=== PATIENT | female | born 1990 | race Two or more races ===

== ENCOUNTER 2023-03-28 23:32 | Observation (INO) | payer MEDICAID ==
[~2023-03-28] VITALS: Ht 165.1 cm; Wt 63.5 kg
[~2023-03-28 23:32] MED LIST: PREN-96 PO
[2023-03-29] MEDS ORDERED: LACTATED RINGER'S 1,000 ML IV ONE (00:15)
[2023-03-29] MEDS ORDERED: TERBUTALINE SULFATE 1 MG/ML 1ML VIAL SC ONE (00:15)
[2023-03-29] MEDS ORDERED: LACTATED RINGER'S 1,000 ML IV SCH (00:15)
[2023-03-29] MEDS: TERBUTALINE SULFATE 1 MG/ML 1ML VIAL SC SCH ×3 (00:23→01:10)
[2023-03-29] MEDS ORDERED: NIFEdipine 10 MG CAP PO ONE (01:15)
[2023-03-29] MEDS ORDERED: NIF10C PO (01:26)
[2023-03-29] MEDS ORDERED: MAGNESIUM SULFATE 40MG/ML 1,000 ML IV SCH (02:30)
[2023-03-29] MEDS ORDERED: MAGNESIUM SULFATE 100 ML IV ONE (02:30)
[2023-03-29] MEDS ORDERED: BETAMETHASONE ACET (30mg/5ml) 5ml Vial 6mg/ml IM ONE (02:45)
[2023-03-29 03:02] LABS: Basophils # (auto) 0.1 10 ^3/uL (0-0.2); Basophils % (auto) 0.4 % (0.0-2.0); Eosinophils # (auto) 0 10 ^3/uL (0-0.8); Eosinophils % (auto) 0.1 % (0.0-7.0); Hemoglobin 13.5 g/dL (12.2-16.2); Lymphocytes # (auto) 1.8 10 ^3/uL (0.4-5.4); Lymphocytes % (auto) 11.8 % (10.0-50.0); Mean Corpuscular Hemoglobin 30.7 pg (28.0-32.0); Mean Corpuscular Hgb Conc. 33.7 g/dL (32.0-36.0); Mean Corpuscular Volume 91.1 fL (80.0-100.0); Monocytes # (auto) 0.6 10 ^3/uL (0-1.3); Monocytes % (auto) 4.1 % (0.0-12.0); Neutrophils # (auto) 12.6 10 ^3/uL (1.6-8.6); Neutrophils % (auto) 83.6 % (37.0-80.0); Red Blood Cells 4.39 10^6/uL (4.0-5.20); Red Cell Distribution Width 12.9 % (11.8-14.3)
[2023-03-29 03:07] LABS: Urine WBC None Seen /hpf (0 - 5)
[2023-03-29 03:21] LABS: Urine Bacteria FEW /hpf (None Seen); Urine Blood TRACE /uL (Negative); Urine Clarity Clear (Clear); Urine Color Colorless (Yellow); Urine Protein, UAD Negative (Negative); Urine Specific Gravity 1.003 (1.001-1.035); Urine Urobilinogen Normal (Negative)
[2023-03-29 03:29] LABS: INR 0.94 (0.9-1.15); Partial Thromboplastin Time 27.1 SEC (24.5-34.5); Prothrombin Time 9.9 sec (9.3-11.8)
[2023-03-29 03:34] LABS: Alcohol, Urine < 3.0 mg/dL (0-10); Amphetamine Screen, Urine NEGATIVE (NEGATIVE); Barbiturate Scree,Urine NEGATIVE (NEGATIVE); Benzodiazephine Screen, Urine NEGATIVE (NEGATIVE); Cannabinoid Screen, Urine NEGATIVE (NEGATIVE); Cocaine Screen, Urine NEGATIVE (NEGATIVE); Opiate Scree,Urine NEGATIVE (NEGATIVE); Phencyclidine Screen, Urine NEGATIVE (NEGATIVE)
[2023-03-29 03:35] LABS: Potassium 3.5 mmol/L (3.5-5.1)
[2023-03-29 03:44] LABS: Albumin 2.5 g/dL (3.4-5.0); BUN/Creatinine Ratio 10.4 (10.0-20.0); Bilirubin, Total 0.3 mg/dL (0.2-1.0); Calcium 8.1 mg/dL (8.5-10.1); Total Protein 6.8 g/dL (6.4-8.2)
[2023-03-31 07:07] LABS: RPR Non Reactive (Non Reactive)
[2023-04-01 19:06] LABS: Treponema pallidum Ab (FTA-Ab) Non Reactive (Non Reactive)
== END 2023-03-29 09:02 ==
LOC: LDRP 23:32
PROVIDERS: ADMIT Obstetrics & Gynecology; ATTEND Obstetrics & Gynecology
DX: O60.03 Preterm labor without delivery, third trimester (principal); O36.8130 Decreased fetal movements, third trimester, not applicable or unspecified; O62.9 Abnormality of forces of labor, unspecified; Z3A.35 35 weeks gestation of pregnancy; Z88.0 Allergy status to penicillin; Z98.891 History of uterine scar from previous surgery; Z79.899 Other long term (current) drug therapy
CPT/HCPCS: 36415; 59025; 76818; 80053; 80307; 81001; 81002; 85025; 85610; 85730; 86592; 86850; 86900; 86901; 94760; 96361; 96365; 96366; 96372; G0378; J0702; J3105; J3475; 96360

== ENCOUNTER 2023-04-17 08:44 | Inpatient (IN) | payer MEDICAID ==
[~2023-04-17] VITALS: Ht 162.6 cm; Wt 73.9 kg
[~2023-04-17 08:44] MED LIST changes: +NIF10C PO
[2023-04-17 12:08] LABS: Basophils # (auto) 0 10 ^3/uL (0-0.2); Basophils % (auto) 0.5 % (0.0-2.0); Eosinophils # (auto) 0.1 10 ^3/uL (0-0.8); Eosinophils % (auto) 0.8 % (0.0-7.0); Hematocrit 37.5 % (36.0-46.0); Hemoglobin 12.8 g/dL (12.2-16.2); Lymphocytes # (auto) 1.5 10 ^3/uL (0.4-5.4); Lymphocytes % (auto) 20.1 % (10.0-50.0); Mean Corpuscular Hemoglobin 30.8 pg (28.0-32.0); Mean Corpuscular Volume 90.6 fL (80.0-100.0); Monocytes # (auto) 0.6 10 ^3/uL (0-1.3); Monocytes % (auto) 7.6 % (0.0-12.0); Neutrophils # (auto) 5.3 10 ^3/uL (1.6-8.6); Red Blood Cells 4.14 10^6/uL (4.0-5.20); Red Cell Distribution Width 13.1 % (11.8-14.3); White Blood Cell 7.5 10^3/uL (4.4-10.8)
[2023-04-17 12:21] LABS: INR 0.93 (0.9-1.15); Partial Thromboplastin Time 26.5 SEC (24.5-34.5); Prothrombin Time 9.8 sec (9.3-11.8)
[2023-04-17 13:33] LABS: Amphetamine Screen, Urine Neg (NEGATIVE)
[2023-04-17 13:35] LABS: Barbiturate Scree,Urine Neg (NEGATIVE)
[2023-04-17 13:36] LABS: Alanine Aminotransferase 11 U/L (7-40); Alkaline Phosphatase 122 U/L (46-116); Anion Gap 6.9 (5-15); Calcium 8.4 mg/dL (8.5-10.1); Carbon Dioxide 23.1 mmol/L (20-30); Chloride 104 mmol/L (98-107); Glucose 74 mg/dL (74-106); Potassium 3.9 mmol/L (3.5-5.1); Sodium 134 mmol/L (136-145)
[2023-04-17 13:36] LABS: Benzodiazephine Screen, Urine Neg (NEGATIVE); Cocaine Screen, Urine Neg (NEGATIVE); Opiate Scree,Urine Neg (NEGATIVE)
[2023-04-17 13:37] LABS: Cannabinoid Screen, Urine Neg (NEGATIVE); Phencyclidine Screen, Urine Neg (NEGATIVE)
[2023-04-17 13:37] LABS: Albumin 3.5 g/dL (3.2-4.8); Aspartate Aminotransferase 17 U/L (13-40)
[2023-04-17 13:38] LABS: Bilirubin, Total 0.7 mg/dL (0.2-1.0); Total Protein 6.2 g/dL (5.7-8.2)
[2023-04-17 13:42] LABS: BUN/Creatinine Ratio 9.8 (10.0-20.0); Blood Urea Nitrogen < 5 mg/dL (9-23)
[2023-04-18] VITALS (22 sets, daily range): BP systolic 109–133; BP diastolic 69–87; PULSE 61–87; RESP 17–18; TEMP 98.1–98.7; O2SAT 97–100
[2023-04-18] MEDS ORDERED: METOCLOPRAMIDE HCL 5MG/ml INJ 2ml VIAL IV ONE (05:30)
[2023-04-18] MEDS ORDERED: SODIUM CITR/CITRIC ACID ORAL SOLN 30 ML PO ONE (05:30)
[2023-04-18] MEDS ORDERED: LACTATED RINGER'S 1,000 ML IV SCH (05:30)
[2023-04-18] MEDS ORDERED: LACTATED RINGER'S 1,000 ML IV ONE (05:30)
[2023-04-18] MEDS ORDERED: CLINDAMYCIN 900MG IV 50 ML IV ONE (05:45)
[2023-04-18 06:34] LABS: Urine Bacteria NONE SEEN /hpf (None Seen); Urine Blood Negative /uL (Negative); Urine Clarity Clear (Clear); Urine Color Yellow (Yellow); Urine Protein, UAD Negative (Negative); Urine Specific Gravity 1.014 (1.001-1.035); Urine Urobilinogen Normal (Negative); Urine WBC 1 /hpf (0 - 5); Urine pH 6.5 (5.0-8.0)
[2023-04-18] MEDS ORDERED: oxyTOCIN 10 UNIT/ML 10ML VIAL ONE (06:38)
[2023-04-18] MEDS ORDERED: DexAMETHasone SOD PHOS 10MG/1ML VIAL INJ ONE (06:38)
[2023-04-18] MEDS ORDERED: ONDANSETRON HCL 4 MG/2 ML VIAL ONE (06:38)
[2023-04-18] MEDS ORDERED: fentaNYL CITRATE 100 MCG/2 ML VL ONE (06:39)
[2023-04-18] MEDS ORDERED: MORPHINE SULF PF 5 MG/10 ML VIAL ONE (06:39)
[2023-04-18] MEDS ORDERED: levoFLOXacin 500MG 100 ML IV SCH (07:00)
[2023-04-18] MEDS ORDERED: SODIUM CHLORIDE LOCK 10 ML ONE (07:01)
[2023-04-18] MEDS ORDERED: ceFAZolin 1GM VL ONE (07:01)
[2023-04-18 07:06] LABS: RPR Non Reactive (Non Reactive)
[2023-04-18] MEDS ORDERED: ePHEDrine SULFATE 50 MG/ML AMP ONE (07:41)
[2023-04-18] MEDS ORDERED: IBUP-1456 PO (07:53)
[2023-04-18] MEDS ORDERED: DOCU-94 PO (07:53)
[2023-04-18] MEDS ORDERED: PERCOT PO (07:53)
[2023-04-18] MEDS ORDERED: GUM (CHEWING) 1 GUM CHEW CHEW ONE (08:00)
[2023-04-18] MEDS ORDERED: ONDANSETRON HCL 4 MG/2 ML VIAL IV PRN ×2 (08:00→08:30)
[2023-04-18] MEDS ORDERED: LACT. RINGERS/OXYTOCIN 20UNITS 1,000 ML IV ONE (08:00)
[2023-04-18] MEDS ORDERED: HYDROmorphone HCL 2 MG/ML VL/or syr IV PRN (08:30)
[2023-04-18] MEDS ORDERED: diphenhdrAMINE HCL 50 MG/1 ML VL IV PRN (08:30)
[2023-04-18] MEDS ORDERED: NALOXONE HCL 0.4 MG/ML VIAL IV PRN (08:30)
[2023-04-18] MEDS ORDERED: NALBUPHINE HCL 10 MG/1ml INJECTION IV ONE (08:30)
[2023-04-18] MEDS ORDERED: ACETAMINOPHEN IV 1000 MG/100ML (10MG/ML) IV PRN (12:30)
[2023-04-18] MEDS: ceFAZolin 1GM/50ML 50 ML IV SCH ×2 (15:01→23:14)
[2023-04-18] MEDS ORDERED: PHENYLEPHRINE HCL 10 MG/ML VL IV ONE (18:29)
[2023-04-18 21:26] LABS: Basophils # (auto) 0 10 ^3/uL (0-0.2); Basophils % (auto) 0.2 % (0.0-2.0); Eosinophils # (auto) 0 10 ^3/uL (0-0.8); Hemoglobin 13.6 g/dL (12.2-16.2); Lymphocytes # (auto) 1.1 10 ^3/uL (0.4-5.4); Lymphocytes % (auto) 6.5 % (10.0-50.0); Mean Corpuscular Hemoglobin 30.6 pg (28.0-32.0); Mean Corpuscular Hgb Conc. 33.1 g/dL (32.0-36.0); Mean Corpuscular Volume 92.5 fL (80.0-100.0); Monocytes # (auto) 0.6 10 ^3/uL (0-1.3); Monocytes % (auto) 3.7 % (0.0-12.0); Neutrophils # (auto) 14.8 10 ^3/uL (1.6-8.6); Neutrophils % (auto) 89.6 % (37.0-80.0); Red Blood Cells 4.43 10^6/uL (4.0-5.20); Red Cell Distribution Width 13.1 % (11.8-14.3); White Blood Cell 16.5 10^3/uL (4.4-10.8)
[2023-04-19] VITALS (10 sets, daily range): BP systolic 105–129; BP diastolic 70–77; PULSE 50–80; RESP 16–17; TEMP 98.3–98.8; O2SAT 95–100
[2023-04-19] MEDS: ceFAZolin 1GM/50ML 50 ML IV SCH (07:00)
[2023-04-19] MEDS ORDERED: ceFAZolin 1GM/50ML 50 ML IV ONE (08:00)
[2023-04-19] MEDS ORDERED: BISACODYL 10 MG RECT SUPP PR PRN (08:30)
[2023-04-19] MEDS ORDERED: HYDROcodone-ACET 5/325MG TAB PO PRN (08:30)
[2023-04-19 08:33] LABS: Basophils # (auto) 0 10 ^3/uL (0-0.2); Basophils % (auto) 0.3 % (0.0-2.0); Eosinophils # (auto) 0 10 ^3/uL (0-0.8); Eosinophils % (auto) 0.3 % (0.0-7.0); Hemoglobin 11.9 g/dL (12.2-16.2); Lymphocytes % (auto) 15.3 % (10.0-50.0); Mean Corpuscular Hemoglobin 30.8 pg (28.0-32.0); Mean Corpuscular Hgb Conc. 34.1 g/dL (32.0-36.0); Mean Corpuscular Volume 90.3 fL (80.0-100.0); Monocytes # (auto) 0.5 10 ^3/uL (0-1.3); Monocytes % (auto) 4.2 % (0.0-12.0); Neutrophils # (auto) 10.2 10 ^3/uL (1.6-8.6); Neutrophils % (auto) 79.9 % (37.0-80.0); Red Blood Cells 3.88 10^6/uL (4.0-5.20); Red Cell Distribution Width 12.9 % (11.8-14.3); White Blood Cell 12.8 10^3/uL (4.4-10.8)
[2023-04-19] MEDS: HYDROcodone-ACET 5/325MG TAB PO PRN ×2 (10:13→16:51)
[2023-04-19] MEDS: IBUPROFEN 800 MG TAB PO PRN ×2 (12:30→22:45)
[2023-04-19] MEDS: DOCUSATE SOD 100 MG CAP PO SCH ×2 (16:50→22:25)
[2023-04-20 03:00] VITALS: BP 110/74; PULSE 64; RESP 14; TEMP 98.1; O2SAT 96
[2023-04-20 07:15] VITALS: BP 119/70; PULSE 73; RESP 16; TEMP 98.7; O2SAT 97
[2023-04-20] MEDS: IBUPROFEN 800 MG TAB PO PRN ×2 (09:58→17:11)
[2023-04-20] MEDS: DOCUSATE CALCIUM 240 MG CAP PO SCH ×2 (09:59→10:00)
[2023-04-20] MEDS: DOCUSATE SOD 100 MG CAP PO SCH (09:59)
[2023-04-20 11:20] VITALS: BP 107/71; PULSE 68; RESP 18; TEMP 98.4; O2SAT 98
[2023-04-20] MEDS ORDERED: TETANUS-DIPTH-ACEL PERTUSSIS 0.5ML SYR Tdap IM ONE (16:30)
[2023-04-20 21:06] LABS: Treponema pallidum Ab (FTA-Ab) Non Reactive (Non Reactive)
== END 2023-04-20 18:30 | disposition home or self-care (01) | DRG 539 ==
LOC: LDRP 04-18 05:10 → EDSTATUS 04-18 05:11 → LDRP 04-18 18:47
PROVIDERS: ADMIT Obstetrics & Gynecology; ATTEND Obstetrics & Gynecology
PROC: 0UL70CZ Occlusion of Bilateral Fallopian Tubes with Extraluminal Device, Open Approach (ICD-10-PCS; 2023-04-18)
PROC: 10D00Z1 Extraction of Products of Conception, Low, Open Approach (ICD-10-PCS; principal; 2023-04-18 07:06)
DX: O34.211 Maternal care for low transverse scar from previous cesarean delivery (principal); D62 Acute posthemorrhagic anemia; Z30.2 Encounter for sterilization; Z37.0 Single live birth; Z3A.39 39 weeks gestation of pregnancy; Z88.0 Allergy status to penicillin; O90.81 Anemia of the puerperium
CPT/HCPCS: 36415; 59025; 80053; 80307; 81001; 85025; 85610; 85730; 86592; 86850; 86900; 86901; 90715; 94760; 94762; 96360; 96365; 96366; G0378; J0690; J1100; J1956; J2405; J2590